=== PATIENT | female | born 1975 | race Caucasian/White ===

== ENCOUNTER 2016-09-30 01:06 | Emergency (ER) ==
--- NOTE | 2016-09-30 09:31 | EKG REPORT ---
SEVERITY:- NORMAL ECG - SINUS RHYTHM : Confirmed by: Marcos Willson 30-Sep-2016 09:30:27
== END 2016-09-30 02:10 | disposition left against medical advice (07) ==
LOC: ER 01:06
DX: Z53.9 Procedure and treatment not carried out, unspecified reason (principal); R07.9 Chest pain, unspecified
CPT/HCPCS: 93005; 93010

== ENCOUNTER 2017-01-03 05:22 | Emergency (ER) | payer BC ==
[2017-01-03] MEDS ORDERED: MAG HYDROX/AL HYDROX/SIMETH SUSP 30 ML UDCUP PO ONE (06:12)
[2017-01-03] MEDS ORDERED: LIDOCAINE 2% VISCOUS SOLN 20 ML UDCUP PO ONE (06:12)
[2017-01-03] MEDS ORDERED: NORMAL SALINE 1000 ML 1,000 ML IV ONE (06:12)
[2017-01-03] MEDS ORDERED: ONDANSETRON HCL INJ/PF 4 MG/2 ML SDV IV ONE (06:12)
[2017-01-03] MEDS ORDERED: METOCLOPRAMIDE HCL ORAL SOLN 10 MG/10 ML UDCUP PO ONE (06:12)
[2017-01-03] MEDS ORDERED: MORPHINE SULFATE 10 MG/ML INJ IV ONE (06:12)
[2017-01-03 06:34] LABS: ABSOLUTE BASOPHILS # (AUTO) 0.1 10^3/uL (0.0-0.2); ABSOLUTE LYMPHOCYTES (AUTO) 1.7 10^3/uL (0.5-4.7); ABSOLUTE MONOCYTES (AUTO) 0.5 10^3/uL (0.1-1.4); ABSOLUTE NEUT (AUTO) 10.3 10^3/uL (1.7-8.2); BASOPHILS % (AUTO) 1.2 % (0-2); EOSINOPHILS % (AUTO) 0.3 % (0-6); HEMATOCRIT 47.2 % (36.0-47.0); HEMOGLOBIN 15.5 g/dL (12.0-15.5); HGB HCT DIFFERENCE -0.7; LYMPHOCYTES % (AUTO) 13.1 % (13-45); MEAN CORPUSCULAR HEMOGLOBIN 29.2 pg (27.0-33.4); MEAN CORPUSCULAR HGB CONC 32.9 g/dL (32.0-36.0); MEAN CORPUSCULAR VOLUME 89 fl (80-97); MONOCYTES % (AUTO) 3.7 % (3-13); RED BLOOD COUNT 5.32 10^6/uL (3.72-5.28); RED CELL DISTRIBUTION WIDTH 13.8 % (11.5-14.0); SEGMENTED NEUTROPHILS % (AUTO) 81.7 % (42-78); WHITE BLOOD COUNT 12.6 10^3/uL (4.0-10.5)
[2017-01-03 06:47] LABS: ALANINE AMINOTRANSFERASE 32 U/L (9-52); ALBUMIN 4.7 g/dL (3.5-5.0); ALKALINE PHOSPHATASE 87 U/L (38-126); ANION GAP 14 (5-19); ASPARTATE AMINO TRANSFERASE 23 U/L (14-36); BILIRUBIN,DIRECT 0.4 mg/dL (0.0-0.4); BILIRUBIN,TOTAL 0.6 mg/dL (0.2-1.3); BLOOD UREA NITROGEN 16 mg/dL (7-20); CALCIUM 9.6 mg/dL (8.4-10.2); CARBON DIOXIDE 23 mmol/L (22-30); CHLORIDE 101 mmol/L (98-107); CREATININE RESULT 0.92 mg/dL (0.52-1.25); GLUCOSE 169 mg/dL (75-110); LIPASE 59.9 U/L (23-300); POTASSIUM 4.7 mmol/L (3.6-5.0); SODIUM 137.7 mmol/L (137-145); TOTAL PROTEIN 7.8 g/dL (6.3-8.2)
--- NOTE | 2017-01-03 06:53 | ER Document Report ---
ED General - General Chief Complaint: Abdominal Pain Stated Complaint: VOMITING Time Seen by Provider: 01/03/17 06:04 Mode of Arrival: Ambulatory Information source: Patient Notes: 41-year-old female history of gallbladder disease gallstones resents with complaints of epigastric right upper quadrant abdominal pain that started this morning after she took her medications. Patient denies any fevers or chills. Admits to nausea and vomiting Patient had recent surgery on her left foot this morning TRAVEL OUTSIDE OF THE [place] IN LAST 30 DAYS: No - HPI Onset: Just prior to arrival Onset/Duration: Sudden Quality of pain: Burning Severity: Mild Pain Level: 1 Associated symptoms: Other Exacerbated by: Other - After taking her medications Relieved by: Denies Similar symptoms previously: Yes Recently seen / treated by doctor: Yes - Related Data Allergies/Adverse Reactions: Penicillins Allergy (Verified 01/03/17 05:33) sumatriptan [From Imitrex] Allergy (Verified 01/03/17 05:33) Past Medical History - Social History Smoking Status: Never Smoker Cigarette use (# per day): No Chew tobacco use (# tins/day): No Smoking Education Provided: No Frequency of alcohol use: None Drug Abuse: None Family History: Reviewed & Not Pertinent Patient has suicidal ideation: No Patient has homicidal ideation: No Renal/ Medical History: Denies: Hx Peritoneal Dialysis Past Surgical History: Reports: Hx Orthopedic Surgery - Immunizations Hx Diphtheria, Pertussis, Tetanus Vaccination: Yes Review of Systems - Review of Systems Notes: REVIEW OF SYSTEMS: CONSTITUTIONAL : Denies fever, chills, or sweats. Denies recent illness. EENT: Denies eye, ear, throat, or mouth pain or symptoms. Denies nasal or sinus congestion or discharge. Denies throat, tongue, or mouth swelling or difficulty swallowing. CARDIOVASCULAR: Denies chest pain. Denies palpitations or racing or irregular heart beat. Denies ankle edema. RESPIRATORY: Denies cough, cold, or chest congestion. Denies shortness of breath, difficulty breathing, or wheezing. GASTROINTESTINAL: Admits to abdominal pain GENITOURINARY: Denies difficulty urinating, painful urination, burning, frequency, blood in urine, or discharge. FEMALE GENITOURINARY: Denies vaginal bleeding, heavy or abnormal periods, irregular periods. Denies vaginal discharge or odor. MUSCULOSKELETAL: Denies back or neck pain or stiffness. Denies joint pain or swelling. SKIN: Denies rash, lesions or sores. HEMATOLOGIC : Denies easy bruising or bleeding. LYMPHATIC: Denies swollen, enlarged glands. NEUROLOGICAL: Denies confusion or altered mental status. Denies passing out or loss of consciousness. Denies dizziness or lightheadedness. Denies headache. Denies weakness or paralysis or loss of use of either side. Denies problems with gait or speech. Denies sensory loss, numbness, or tingling. Denies seizures. PSYCHIATRIC: Denies anxiety or stress. Denies depression, suicidal ideation, or homicidal ideation. ALL OTHER SYSTEMS REVIEWED AND NEGATIVE. PHYSICAL EXAMINATION: GENERAL: Well-appearing, well-nourished and in no acute distress. HEAD: Atraumatic, normocephalic. EYES: Pupils equal round and reactive to light, extraocular movements intact, conjunctiva are normal. ENT: Nares patent, oropharynx clear without exudates. Moist mucous membranes. NECK: Normal range of motion, supple without lymphadenopathy LUNGS: Breath sounds clear to auscultation bilaterally and equal. No wheezes rales or rhonchi. HEART: Regular rate and rhythm without murmurs ABDOMEN: Soft, in the epigastric region no rebound or guarding Female : deferred Musculoskeletal: Normal range of motion, no pitting or edema. No cyanosis. NEUROLOGICAL: Cranial nerves grossly intact. Normal speech, normal gait. Normal sensory, motor exams PSYCH: Normal mood, normal affect. SKIN: Left foot in cast Dictation was performed using [employer] voice recognition software Physical Exam - Vital signs Vitals: Temp Pulse Resp BP Pulse Ox 97.7 F 49 L 22 H 97/80 L 96 01/03/17 05:29 01/03/17 05:29 01/03/17 05:29 01/03/17 05:29 01/03/17 05:29 Course - Re-evaluation Re-evalutation: 01/03/17 06:53 Has mild white count elevation, symptoms worsened after taking her medications and felt like they got stuck in her esophagus, believe patient may have some irritation from the GI cocktail nausea control pain control IV fluids have been given ultrasound is pending 01/03/17 07:29 patients u/s report discussed with dr Eduardo, he will evaluate patient 01/03/17 07:50 Surgeon evaluated patient, if patient's symptoms worsen while she is here he will admit for surgical intervention otherwise discharge home with antibiotics 01/03/17 10:03 Patient states she feels 100% better, I will therefore discharge her with very close return precautions. Patient states she will speak with hair surgeon and move up her surgery date at [facility]. After performing a Medical Screening Examination, I estimate there is LOW risk for ACUTE APPENDICITIS, BOWEL OBSTRUCTION, ACUTE CHOLECYSTITIS, PERFORATED DIVERTICULITIS, INCARCERATED HERNIA, PANCREATITIS, PELVIC INFLAMMATORY DISEASE, PERFORATED ULCER, ECTOPIC , or TUBO-OVARIAN ABSCESS, thus I consider the discharge disposition reasonable. Also, there is no evidence or peritonitis , sepsis, or toxicity. I have reevaluated this patient multiple times and no significant life threatening changes are noted. The patient and I have discussed the diagnosis and risks, and we agree with discharging home with close follow-up with the understanding that symptoms and presentations can change. We also discussed returning to the Emergency Department immediately if new or worsening symptoms occur. We have discussed the symptoms which are most concerning (e.g., bloody stool, fever, changing or worsening pain, vomiting) that necessitate immediate return. - Vital Signs Vital signs: Temp Pulse Resp BP Pulse Ox 98 F 63 16 133/62 H 97 01/03/17 08:05 01/03/17 08:05 01/03/17 08:05 01/03/17 08:05 01/03/17 08:05 - Laboratory Result Diagrams: 01/03/17 06:20 01/03/17 06:20 Laboratory results interpreted by me: 01/03/17 01/03/17 06:20 06:20 WBC 12.6 H RBC 5.32 H Hct 47.2 H Seg Neutrophils % 81.7 H Absolute Neutrophils 10.3 H Glucose 169 H - Diagnostic Test Radiology reviewed: Image reviewed, Reports reviewed - Gallbladder disease Discharge - Discharge Clinical Impression: Gallbladder disease, Gastric reflux Nausea & vomiting Qualifiers: Vomiting type: unspecified Vomiting Intractability: non-intractable Qualified Code(s): R11.2 - Nausea with vomiting, unspecified Condition: Stable Disposition: HOME, SELF-CARE Instructions: Gallbladder Disease ([facility]) Additional Instructions: Please follow-up with your surgeon or return immediately if you have any fevers or any other concerns Prescriptions: Ciprofloxacin HCl [Cipro 500 mg Tablet] 500 mg PO BID #20 tablet Metronidazole [Flagyl 500 mg Tablet] 500 mg PO Q6H #40 tablet Promethazine HCl [Phenergan 25 mg Tablet] 1 - 2 tab PO Q6H PRN #15 tablet PRN Reason:
--- NOTE | 2017-01-03 07:01 | RADIOLOGY REPORT (SQ) ---
EXAM DESCRIPTION: U/S ABDOMEN LIMITED W/O DOP COMPLETED DATE/TIME: 01/03/2017 6:50 am REASON FOR STUDY: RUQ pain COMPARISON: None. TECHNIQUE: Dynamic and static grayscale images acquired of the abdomen and recorded on PACS. Additio nal selected color Doppler and spectral images recorded. LIMITATIONS: Bowel gas and body habitus obscured pancreas. FINDINGS: PANCREAS: Obscured. LIVER: No masses. Echotexture normal. LIVER VASCULATURE: Normal directional flow of the main portal vein and hepatic veins. GALLBLADDER: Several small gallstones the. Positive: Sonographic Vincent's test. Gallbladder wall th ickness is less than 2 mm. No significant sophy cholecystic fluid. ULTRASOUND-DETECTED VINCENT'S SIGN: Negative. INTRAHEPATIC DUCTS AND COMMON DUCT: 0.5 cm diameter CBD and intrahepatic ducts normal caliber. No sriram ling defects. INFERIOR VENA CAVA: Normal flow. AORTA: No aneurysm. RIGHT KIDNEY: Normal size. Normal echogenicity. No solid or suspicious masses. No hydronephrosis. No calcifications. PERITONEAL AND RIGHT PLEURAL SPACE: No ascites or effusions. OTHER: No other significant findings. IMPRESSION: Gallstones and positive sonographic Vincent's test. Differential diagnosis includes chol ecystitis and biliary colic. Laboratory correlation recommended. TECHNICAL DOCUMENTATION: JOB ID: [id number] [employer]- All Rights Reserved
--- NOTE | 2017-01-03 10:04 | HISTORY AND PHYSICAL E ---
Consultation instead of H&P NAME: FLAVIO GRANGER : 1975 AGE: 41Y ADMITTED: 01/03/2017 ROOM: CHIEF COMPLAINT: Abdominal pain. HISTORY OF PRESENT ILLNESS: This is a 41-year-old female who complained of abdominal pain yesterday afternoon around 4 o'clock. She had surgery on her left foot in [place] in the morning and then had some fatty meal at a fast-food place. She is supposed to be scheduled for a cholecystectomy in [place] January 19, but she developed this severe pain, which was worse than when she had it initially about a month ago. Her pains were in the epigastric area and the right upper quadrant radiating to the chest. She said as soon as she took her medications in the afternoon, it felt like the medication was stuck in her sternal area, and this was followed by severe right upper quadrant pains and epigastric pains with nausea and vomiting. Denies any fever or chills. ALLERGIES: PENICILLIN, IMITREX. SOCIAL HISTORY: Never smoked. Drinks socially. No drug use. REVIEW OF SYSTEMS: CONSTITUTIONAL: Denies any fever, chills. ENT: No ear or eye problems. CARDIOVASCULAR: No chest pains or palpitations. RESPIRATORY: Denies any cough or congestion or shortness of breath. GI: Admits to abdominal pain, nausea and vomiting. : Denies dysuria. TORCH SOLDERER: Denies vaginal bleeding. MUSCULOSKELETAL: Denies back pain or joint swelling. SKIN: Denies any rash or sores. HEMATOLOGIC: Denies any bruising or bleeding. LYMPHATIC: Denies swollen or large glands. NEUROLOGIC: No confusion or altered mental status. PSYCHIATRIC: Denies anxiety or stress. All other systems are reviewed and negative. PHYSICAL EXAMINATION: VITAL SIGNS: Temperature 97.7, pulse 49 per minute, respiratory 22 per minute, blood pressure 97/80, pulse oximetry 96% on room air. 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 She claims she has had a low heart rate and pacemaker is set at 50 per minute for it to fire. She had her third battery replacement of the pacemaker battery and usually has it every 11 to 12 years since it is barely used by her heart rate. GENERAL: A well appearing, well nourished female complaining of right upper quadrant pain. HEENT: Pupils equal, round and reactive to light. NECK: Supple. No thyromegaly. No lymphadenopathy. LUNGS: Clear to auscultation. HEART: Regular rate and rhythm. ABDOMEN: Soft with tenderness in the right upper quadrant and epigastric region. MUSCULOSKELETAL: Normal range of motion. NEUROLOGIC: Normal speech and normal gait. PSYCHIATRIC: Normal mood and affect. SKIN: Warm and dry. Left foot in a cast. DIAGNOSTICS: She had an ultrasound of the gallbladder, which showed stones and positive Vincent's sign. IMPRESSION: Acute calculus cholecystitis. PLAN: Give IV antibiotics. If feels better in the ER after several hrs then can be discharge on po antibiotics to be followed in [facility]. She is scheduled to have her lap sammy on January 19 at [place]. Advise low fat diet or to come back to ER if pains worsen or develops fever. DICTATING PHYSICIAN: JOVANY CARBONE M.D. [id number] PHY#: [id number] ID: [id number] JOB#: [id number] ACCT: [id number] cc: > MTDD
[2017-01-03 10:09] LABS: APPEARANCE,URINE CLEAR; BILIRUBIN,URINE NEGATIVE (NEGATIVE); GLUCOSE, URINE NEGATIVE (NEGATIVE); KETONES,URINE 20 mg/dL (NEGATIVE); LEUKOCYTE ESTERASE,URINE NEGATIVE (NEGATIVE); NITRITE,URINE NEGATIVE (NEGATIVE); PROTEIN,URINE NEGATIVE (NEGATIVE); URINE SPECIFIC GRAVITY 1.021; UROBILINOGEN,URINE NEGATIVE mg/dL (<2.0)
[2017-01-03 10:38] VITALS: BP 92/76
== END 2017-01-03 10:20 | disposition home or self-care (01) ==
LOC: ER 05:22
DX: K82.9 Disease of gallbladder, unspecified (principal); K21.9 Gastro-esophageal reflux disease without esophagitis; R11.2 Nausea with vomiting, unspecified; R10.11 Right upper quadrant pain; R10.13 Epigastric pain; Z88.0 Allergy status to penicillin
CPT/HCPCS: 99284; 96374; 96375; 36415; 83690; 85025; 81025; 80053; 81001; 76705; J3490; J2270; J2405; J7030

== ENCOUNTER 2020-05-12 00:24 | Emergency (ER) | payer BC ==
[2020-05-12] MEDS ORDERED: OXYCODONE-ACETAMINOPHEN 5-325 MG TABLET PO ONE (01:10)
[2020-05-12] MEDS ORDERED: BUPIVACAINE HCL 0.75% INJ/PF (7.5 MG/1 ML) 10 ML SDV INJ ONE (01:10)
--- NOTE | 2020-05-12 01:34 | ER Document Report ---
HPI - HPI Patient complains to provider of: Toothache Time Seen by Provider: 05/12/20 00:56 Notes: 45-year-old female to the emergency department with complaints of left upper tooth ache that is been going on for about a week and been getting worse. She states that she has an appoint with her dentist on this upcoming to get either root canal or extraction. She states that she took a leftover [place] tonight and also started on Keflex from her dentist. She states that the pain awoke her from sleep tonight and she cannot tolerate it. She is also been taking viscous lidocaine and Motrin 800 mg. She states that she is not been running a fever. She denies any drooling. She denies any shortness of breath or difficulty breathing. - ROS Systems Reviewed and Negative: Yes All other systems reviewed and negative - CONSTITUTIONAL Constitutional: DENIES: Fever, Chills - EENT EENT: DENIES: Sore Throat, Ear Pain, Congestion Notes: Dental pain - NEURO Neurology: REPORTS: Headache Notes: Headache from dental pain - CARDIOVASCULAR Cardiovascular: DENIES: Chest pain - RESPIRATORY Respiratory: DENIES: Trouble Breathing, Coughing - GASTROINTESTINAL Gastrointestinal: DENIES: Abdominal Pain, Nausea, Patient vomiting, Diarrhea - MUSCULOSKELETAL Musculoskeletal: DENIES: Extremity pain - DERM Skin Color: Normal Skin Problems: None Past Medical History - General Information source: Patient - Social History Smoking Status: Former Smoker Frequency of alcohol use: None Drug Abuse: None Family History: Reviewed & Not Pertinent Renal/ Medical History: Denies: Hx Peritoneal Dialysis Past Surgical History: Reports: Hx Orthopedic Surgery - Immunizations Hx Diphtheria, Pertussis, Tetanus Vaccination: Yes Vertical Provider Document - CONSTITUTIONAL Agree With Documented VS: Yes General Appearance: WD/WN Notes: Moderate pain. - INFECTION CONTROL TRAVEL OUTSIDE OF THE [place] IN LAST 30 DAYS: No - HEENT HEENT: Atraumatic, Normocephalic Notes: The posterior left molar is decayed and eroding into the gumline; there appears to be dental caries. Is tender to palpation. The molar in front of it is also decayed and has caries. No alphonso abscess is appreciated. No Ramo's angina. No voice change. No drooling. Airway is grossly patent. - NECK Neck: Normal Inspection, Supple - RESPIRATORY Respiratory: Breath Sounds Normal, No Respiratory Distress. negative: Rales, Rhonchi, Wheezing - CARDIOVASCULAR Cardiovascular: Regular Rate, Regular Rhythm, No Murmur - GI/ABDOMEN Gastrointestinal: Abdomen Soft, Abdomen Non-Tender, No Organomegaly - BACK Back: Normal Inspection - MUSCULOSKELETAL/EXTREMETIES Musculoskeletal/Extremeties: MAEW, FROM, Non-Tender - NEURO Level of Consciousness: Awake, Alert, Appropriate Motor/Sensory: No Motor Deficit, No Sensory Deficit - DERM Integumentary: Warm, Dry Course - Re-evaluation Re-evalutation: 05/12/20 02:11 Impression: Toothache, dental caries. Applied a dental block with his of again. Patient did have relief of her pain with this. Will send home with small amount of Percocet since the hydrocodone has not been controlling her pain. Encouraged her to continue her Keflex. Have also encouraged her to follow-up with her dentist on Thursday without fail. Patient agrees with the plan - Vital Signs Vital signs: Temp Pulse Resp BP Pulse Ox 98.4 F 58 L 20 147/83 H 98 05/12/20 00:36 05/12/20 00:36 05/12/20 00:36 05/12/20 00:36 05/12/20 00:36 Procedures - Additional Procedures dental block Time performed: :34 Additional Procedures: Other - dental block to the inferior alveolar nerve to the posterior left upper molar with Bupivicaine. Notes: 05/12/20 01:34 Patient tolerated the procedure well. She achieved good relief of her pain. Discharge - Discharge Clinical Impression: Toothache, Dental caries Condition: Stable Disposition: HOME, SELF-CARE Instructions: Toothache ([facility]) Additional Instructions: Complete the antibiotics that your dentist wrote for you. Take pain medicines as prescribed. Follow-up with the dentist on Thursday without fail. Prescriptions: Oxycodone HCl/Acetaminophen [Percocet 5-325 mg Tablet] 1 tab PO Q6H PRN #9 tablet PRN Reason: Referrals: [facility] [Provider Group] - Follow up as needed
[2020-05-12 01:56] VITALS: BP 130/74
== END 2020-05-12 01:56 | disposition home or self-care (01) ==
LOC: ER 00:24
PROC: 3E0T3BZ Introduction of Anesthetic Agent into Peripheral Nerves and Plexi, Percutaneous Approach (ICD-10-PCS; principal; 2020-05-12)
DX: K02.9 Dental caries, unspecified (principal); K08.89 Other specified disorders of teeth and supporting structures; Z79.899 Other long term (current) drug therapy; R51.9 Headache, unspecified; Z87.891 Personal history of nicotine dependence
CPT/HCPCS: 99284; 64450; J3490